=== PATIENT | male | born 1970 | race Caucasian/White ===

== ENCOUNTER 2023-10-28 12:23 | Day surgery (SDC) | payer BC ==
[2023-10-28] VITALS (9 sets, daily range): BP systolic 114–147; BP diastolic 79–90; PULSE 67–84; RESP 13–17; TEMP 98.4; O2SAT 94–99
[~2023-10-28] VITALS: Ht 177.8 cm; Wt 83.4 kg
[2023-10-28] MEDS ORDERED: ASPI-611 PO (12:41)
[2023-10-28] MEDS ORDERED: ATOR10TA70 PO (12:41)
[2023-10-28] MEDS ORDERED: LISI20TA28 PO (12:41)
[2023-10-28] MEDS ORDERED: diphenhydrAMINE 25mg capsule PO PRN (13:10)
[2023-10-28] MEDS ORDERED: normal saline 1,000 ML IV SCH (13:10)
[2023-10-28] MEDS ORDERED: LORazepam 0.5 MG tablet PO PRN (13:10)
[2023-10-28] MEDS ORDERED: fentaNYL/PF 50MCG/1 ML 2ML syringe ONE (13:59)
[2023-10-28] MEDS ORDERED: heparin 1,000unit/ml 10ml vial 10 ML ONE (13:59)
[2023-10-28] MEDS ORDERED: iohexol 350MG/ML 100ml bottle IV ONE ×3 (13:59→14:54)
[2023-10-28] MEDS ORDERED: midazolam 1 mg/ML 2ml injection ONE ×2 (13:59→14:36)
[2023-10-28] MEDS ORDERED: verapamil 2.5 mg/ml inj IV ONE (13:59)
[2023-10-28] MEDS ORDERED: LIDOcaine 1% (10mg/ml) 2ml vial ONE (13:59)
[2023-10-28] MEDS ORDERED: nitroGLYCERIN 500mcg/5mL D5W 5 ML IV ONE (14:00)
[2023-10-28 14:07] LABS: BASOPHILS % (AUTO) 0.2 % (0-1); EOSINOPHILS # (AUTO) 0.1 X10'3 (0-0.9); EOSINOPHILS % (AUTO) 2.6 % (0-6); HEMATOCRIT 42.6 % (42.0-52.0); HEMOGLOBIN 14.6 g/dl (14.0-17.9); LYMPHOCYTES # (AUTO) 1.7 X10'3 (1.1-4.8); LYMPHOCYTES % (AUTO) 36.5 % (21-51); MEAN CORPUSCULAR HEMOGLOBIN 31.7 PG (27.0-31.0); MEAN CORPUSCULAR HGB CONC 34.3 g/dL (33.0-36.5); MEAN CORPUSCULAR VOLUME 92.4 FL (78-98); MONOCYTES # (AUTO) 0.5 X10'3 (0-0.9); MONOCYTES % (AUTO) 9.9 % (2-12); NEUTROPHILS # (AUTO) 2.4 X10'3 (1.8-7.7); NEUTROPHILS % (AUTO) 50.8 % (42-75); PLATELET COUNT 210 X10'3 (140-440); RED BLOOD COUNT 4.61 X10'6 (4.70-6.10); WHITE BLOOD COUNT 4.7 X10'3 (4.5-11.0)
[2023-10-28 14:22] LABS: APTT 23 SECONDS (22-32)
[2023-10-28 14:24] LABS: ALBUMIN 4.4 G/DL (3.4-5.0); ANION GAP 9 (8-16); BLOOD UREA NITROGEN 11 MG/DL (7-18); CALCIUM 8.6 MG/DL (8.5-10.1); CHLORIDE 105 MMOL/L (99-107); CHOL/HDL RATIO 2.6 (0.00-4.99); CHOLESTEROL 159 MG/DL (0-200); CREATININE 0.92 MG/DL (0.60-1.10); GLUCOSE 89 MG/DL (70-104); HDL CHOLESTEROL 62 MG/DL (35-60); LDL CHOLESTEROL 72 MG/DL (50-100); POTASSIUM 3.8 MMOL/L (3.5-5.1); SODIUM 141 MMOL/L (135-145); TOTAL CARBON DIOXIDE 27.1 MMOL/L (24-32); TRIGLYCERIDES 86 MG/DL (20-135); eCRCL 97 ML/MIN; eGFR 86 ML/MIN
[2023-10-28 14:25] LABS: INR 0.9 INR
[2023-10-28] MEDS ORDERED: aspirin 325mg tablet ONE (14:31)
[2023-10-28] MEDS ORDERED: clopidogrel 300mg tablet ONE (14:32)
[2023-10-28] MEDS ORDERED: HYDROcodone/acetaminophen 5mg/325mg tablet PO PRN (15:50)
[2023-10-28] MEDS ORDERED: HYDROcodone/acetaminophen 10/325mg tab PO PRN (15:50)
== END 2023-10-28 17:49 | disposition home or self-care (01) ==
LOC: SSTAY O 12:23
PROVIDERS: ATTEND Student in an Organized Health Care Education/Training Program
DX: R94.39 Abnormal result of other cardiovascular function study (principal); I10 Essential (primary) hypertension; E78.00 Pure hypercholesterolemia, unspecified; Z87.891 Personal history of nicotine dependence; Z79.82 Long term (current) use of aspirin; Z79.899 Other long term (current) drug therapy
CPT/HCPCS: 36415; 80048; 80061; 83735; 85025; 85610; 85730; 93005; 93458; 99152; 99153; A6258; C1874; C9600; J1644; J2250; J3010; J3490; J7030; Q9967; A6402; C1725; C1751; C1769; C1894